=== PATIENT | male | born 1960 | race Caucasian/White ===

== ENCOUNTER 2016-10-19 13:37 | Emergency (ER) | payer OTHER ==
[~2016-10-19] VITALS: Ht 177.8 cm; Wt 87.9 kg
[2016-10-19 13:39] VITALS: BP 170/125
[2016-10-19] MEDS ORDERED: KETOROLAC 30 MG/1 ML ONE (14:27)
[2016-10-19] MEDS ORDERED: KETOROLAC 30 MG/1 ML IM ONE (14:30)
== END 2016-10-19 14:42 | disposition home or self-care (01) ==
LOC: ED 13:54
DX: M54.42 Lumbago with sciatica, left side (principal)
CPT/HCPCS: 96372; 99283; J1885

== ENCOUNTER 2017-05-26 07:02 | Emergency (ER) | payer OTHER ==
[~2017-05-26] VITALS: Ht 177.8 cm; Wt 91.0 kg
[2017-05-26] MEDS ORDERED: ASPI-496 PO (07:53)
[2017-05-26] MEDS ORDERED: ATOR20TA9 PO (07:53)
[2017-05-26 08:16] LABS: BASOPHILS # (AUTO) 0.02 x10^3/uL (0-0.1); BASOPHILS % (AUTO) 0 % (0-1); EOSINOPHILS # (AUTO) 0.02 x10^3/uL (0-0.4); EOSINOPHILS % (AUTO) 0 % (1-7); LYMPHOCYTES # (AUTO) 0.82 x10^3/uL (1-3.4); LYMPHOCYTES % (AUTO) 12 % (22-44); MD NO; MEAN CORPUSCULAR HGB CONC 35.2 g/dL (33.2-36.2); MEAN CORPUSCULAR VOLUME 90.9 fL (81-97); MEAN PLATELET VOLUME 8.9 fL (7.4-10.4); MONOCYTES # (AUTO) 0.36 x10^3/uL (0.2-0.8); MONOCYTES % (AUTO) 5 % (2-9); NEUTROPHILS # (AUTO) 5.67 x10^3/uL (1.8-6.8); NEUTROPHILS % (AUTO) 82 % (42-75); PLATELET COUNT 255 x10^3/uL (130-400); RED BLOOD COUNT 5.15 x10^6/uL (4.38-5.82); RED CELL DISTRIBUTION WIDTH 12.1 % (9.4-14.8)
[2017-05-26 08:27] LABS: ANION GAP 8 mmol/L (5-15); CALCIUM 8.7 mg/dL (8.5-10.1); CHLORIDE 108 mmol/L (98-107); CREATININE 1.12 mg/dL (0.7-1.3)
[2017-05-26 08:31] LABS: TROPONIN I 0.016 ng/mL (0.000-0.045)
[2017-05-26 09:49] VITALS: BP 163/91
[2017-05-26] MEDS ORDERED: CHLORDIAZEPOXIDE 25 MG CAPSULE PO ONE (10:00)
== END 2017-05-26 09:55 | disposition home or self-care (01) ==
LOC: ED 08:22
DX: R07.89 Other chest pain (principal); R05 Cough; E78.5 Hyperlipidemia, unspecified
CPT/HCPCS: 36415; 71046; 80048; 82040; 84484; 85025; 93005; 99285